=== PATIENT | male | born 1940 | race Caucasian/White ===

== ENCOUNTER → 2018-07-15 10:45 | Outpatient (CLI) | payer OTHER | END | disposition home or self-care (01) | LOC: D.US 07-11 10:00 | DX: I65.23 Occlusion and stenosis of bilateral carotid arteries (principal); Z86.73 Personal history of transient ischemic attack (TIA), and cerebral infarction without residual deficits ==

== ENCOUNTER 2018-09-23 05:43 | Outpatient (CLI) | payer MEDICARE ==
[~2018-09-23] VITALS: Ht 172.7 cm; Wt 77.3 kg
--- NOTE | ~2018-09-23 | HEMODYNAMI ---
PATIENT:AMY SCHRADER MEDICAL RECORD: [id number] : 42 [id number] ADMISSION DATE: 09/23/18 Generatedon:09/23/201810:31 Patient name: AMY SCHRADER Patient #: [id number] SSN: D OB: 1940 Date of study: 09/23/2018 Page: Of Hemodynamic Procedure Report Patient Data Patient Demographics Procedure consent was obtained First Name: AMY Gender: Male Last Name: RACIEL : 1940 Middle Initial: R Age: 78 year(s) Patient #: [id number] Race: Unknown Additional ID: [id number] Contact details [address]: [address] [place] [address] State: [place] City: [place] Zip code: [address] Past Medical History Allergies: No known allergies Admission Admission Data Admission Date: 09/23/2018 Admission Time: 5:43 Procedure Procedure Types Cath Procedure Peripheral Cath Diagnostic Procedure 4-Vessel 4 Vessel Carotid Arterio Arch Procedure Description Procedure Date Procedure Date: 09/23/2018 Procedure Start Time: 9:18 Procedure End Time: 10:30 Procedure Staff Name Function Donte Daniel MD Performing Physician Gay Tenorio RT Monitor Korin Aaron RN Nurse Rah Weller RT Scrub TAJ JACKSON RT Scrub Kay Tyson RN Nurse Procedure Data Cath Procedure Fluoroscopy Diagnostic fluoroscopy Total fluoroscopy Time: time: 17.4 min 17.4 min Diagnostic fluoroscopy Total fluoroscopy dose: dose: 1331 mGy 1331 mGy Contrast Material Contrast Material Type Amount (ml) Isovue 300 115 Diagnostic catheters Device Type Used For End Catheter Placement Merit ULTRA BOLUS FLUSH 5Fr 90CM catheter ([id number]) Cook HN5 5F/100CM Vertebral (neck catheter ([id number]) and/or head) arteriography Merit impress Morales 2 Vertebral (neck cath 100cm ([id number]) and/or head) arteriography Procedure Medications Medication Administration Route Dosage Lidocaine 1% added to field 20 Heparin Flush Bag added to field 3 (1000units/500ml NS) Versed I.V. 0.5 mg Fentanyl I.V. 25 mcg Fentanyl I.V. 25 mcg Versed I.V. 0.5 mg Fentanyl I.V. 25 mcg Hemodynamics Rest Heart Rate: 69 (bpm) Snapshots Pre Cath Intra NCS Post Cath Vital Signs Time Heart Resp SPO2 etCO2 NIBP (mmHg) Rhythm Pain Sedation Rate (ipm) (%) (mmHg) Status Level (bpm) 8:38:41 66 20 99 0 155/90(146) NSR 0 (11) 10(A) , No pain 8:42:57 54 14 99 0 170/82(137) NSR 0 (11) 9(A) , No pain 8:47:20 56 16 98 0 177/81(136) NSR 0 (11) 9(A) , No pain 8:52:19 60 11 98 0 Measuring NSR 0 (11) 9(A) , No pain 8:52:31 62 10 98 0 176/83(144) NSR 0 (11) 9(A) , No pain 8:56:57 59 17 98 0 157/80(150) NSR 0 (11) 9(A) , No pain 9:01:15 55 13 97 0 171/81(155) NSR 0 (11) 9(A) , No pain 9:06:14 54 12 98 0 Measuring NSR 0 (11) 9(A) , No pain 9:06:24 54 10 98 5.2 178/83(159) NSR 0 (11) 9(A) , No pain 9:10:49 53 15 99 15 176/85(151) NSR 0 (11) 9(A) , No pain 9:15:07 55 14 99 16.5 180/83(154) NSR 0 (11) 9(A) , No pain 9:19:33 53 13 97 15.8 172/80(151) NSR 0 (11) 9(A) , No pain 9:23:55 52 9 97 14.3 172/84(152) NSR 0 (11) 9(A) , No pain 9:28:17 55 13 97 20.3 169/82(148) NSR 0 (11) 9(A) , No pain 9:32:42 57 12 99 15 163/77(144) NSR 0 (11) 9(A) , No pain 9:36:58 56 57 98 3 170/89(149) NSR 0 (11) 9(A) , No pain 9:41:20 53 12 97 12 175/83(147) NSR 0 (11) 9(A) , No pain 9:45:46 53 13 98 24.8 166/76(138) NSR 0 (11) 9(A) , No pain 9:50:06 52 12 98 19.5 168/82(143) NSR 0 (11) 9(A) , No pain 9:54:26 52 10 98 13.5 171/83(147) NSR 0 (11) 9(A) , No pain 9:58:51 51 7 97 30.1 167/76(121) NSR 0 (11) 9(A) , No pain 10:03:15 52 10 98 9.7 157/77(133) NSR 0 (11) 9(A) , No pain 10:07:33 53 9 97 30.1 155/77(130) NSR 0 (11) 9(A) , No pain 10:11:51 55 12 97 17.3 169/78(140) NSR 0 (11) 9(A) , No pain 10:16:13 52 10 98 36.9 171/83(139) NSR 0 (11) 9(A) , No pain 10:20:35 53 13 97 23.3 160/81(141) NSR 0 (11) 9(A) , No pain 10:24:49 53 10 96 33.9 162/88(145) NSR 0 (11) 9(A) , No pain 10:28:49 30.8 No Cuff NSR 0 (11) 9(A) , No pain Medications Time Medication Route Dose Verified Delivered Reason Notes Effe ctiveness by by 8:40:30 Lidocaine 1% added 20ml Donte Kent for local to vial María Daniel MD anesthetic field JI 8:41:01 Heparin Flush added 3 Donte Kent used for Bag to Maraí Daniel MD procedure (1000units/500ml field JI NS) 9:16:52 Versed I.V. 0.5 Donte Villanueva for mg Jah Daniel RN sedation 9:17:08 Fentanyl I.V. 25 Donte Villanueva for mcg Jah Daniel RN sedation 9:54:07 Fentanyl I.V. 25 Donte Villanueva for mcg Jah Daniel RN sedation 9:54:22 Versed I.V. 0.5 Donte Villanueva for mg Jah Daniel RN sedation 10:16:23 Fentanyl I.V. 25 Donte Langley for mcg Galen Daniel RN sedation Procedure Log Time Note 8:18:03 TAJ JACKSON RT (R) sent for patient. Start room use. 8:31:35 Time tracking: Regular hours (M-F 7:00 - 5:00) 8:31:44 Plan of Care:Hemodynamics will remain stable., Cardiac rhythm will remain stable., Comfort level will be maintained., Respiratory function will remain adequate., Patient/ family verbilizes understanding of procedure., Procedure tolerated without complication., Recovers from procedure without complications.. 8:31:56 Patient received from Outpatients to IR Alert and oriented. Tansferred to table in Supine position. 8:31:58 Warm blankets applied, and tha hugger turned on for patient comfort. 8:32:00 Correct patient and procedure confirmed by team. 8:32:05 Signed procedure consent form obtained from patient. 8:32:11 ECG and BP/O2 sat monitors applied to patient. 8:32:27 H&P Date Dictated: 09/23/2018 H&P Addendum completed by physician on day of procedure. (MUST COMPLETE FOR ALL OUTPATIENTS). 8:32:30 Pre-procedure instructions explained to patient. 8:32:31 Pre-op teaching completed and patient verbalized understanding. 8:32:34 Family in waiting room. 8:32:45 Patient NPO since Midnight. 8:33:26 Patient allergic to No known allergies 8:33:34 Is the patient allergic to Iodine/contrast media? No. 8:33:41 Is patient on blood thinner?Yes 8:33:50 ACC The patient was administered the following blood thiners within the last 24 hours: ACCPlavix 8:34:18 Patient diabetic? No. 8:34:23 - 8:34:28 ----Pre-sedation anethsthesia assessment.---- 8:34:35 Previous problem with sedation/anesthesia? No ? 8:34:40 Snore? Yes 8:34:43 Sleep apnea? Yes 8:34:47 Deviated septum? Unknown 8:34:50 Opens mouth fully? Yes 8:34:55 Sticks out tongue? Yes 8:35:41 Airway obstruction? No ? 8:35:49 Dentures? No ? 8:36:21 IV patent on arrival in left wrist with 0.45%NaCl at [facility]. 8:36:48 Right Hip was prepped with chlora-prep and draped in sterile fashion. 8:36:50 Alarms reviewed. 8:36:51 Sharps counted by scrub and verified. 8:37:37 Vital chart was started 8:38:17 Baseline sample Acquired. 8:39:58 Pre procedure: right dorsailis pedis pulse Doppler 8:40:30 Lidocaine 1% 20ml vial added to field was administered by Donte Daniel MD; for local anesthetic; 8:41:01 Heparin Flush Bag (1000units/500ml NS) 3 added to field was administere d by Donte Daniel MD; used for procedure; 9:00:53 DOC .035 wire (U79081) opened to sterile field. 9:04:54 SHEATH 5FR Mission (WDF098) opened to sterile field. 9:05:19 GLIDE CATHETER 5FR ANGLED 100cm (CG508) opened to sterile field. 9:06:12 Use device set IR Diagnostic 9:06:15 ACIST Syringe (20871) opened to sterile field. 9:06:16 ACIST Hand Control (97543) opened to sterile field. 9:06:17 ACIST Manifold (71443) opened to sterile field. 9:06:18 Bag Decanter (2002) opened to sterile field. 9:06:20 Sterile Angiographic Pack opened to sterile field. 9:06:20 Tegaderm 4 x 4 (1626W) opened to sterile field. 9:10:45 Micropuncture VSI 4FR kit opened to sterile field. 9:14:27 Physician arrived 9:: --------ALL STOP TIME OUT------ 9:14:31 Final Timeout: patient, procedure, and site verified with staff and physician. All members of the team are in agreement. 9:14:34 Right groin site verified by team. 9:14:47 Sedation plan: IV Moderate Sedation Medication:Versed, Fentanyl, Lidocaine 9::57 Procedure started. :: Full Disclosure recording started 9:16:52 Versed 0.5 mg I.V. was administered by Kay Tyson RN; for sedation; 9:17:08 Fentanyl 25 mcg I.V. was administered by Kay Tyson RN; for sedation; 9:18:12 Local anesthetic to right femoral artery with Lidocaine 1% by Donte Daniel MD.INITIAL ACCESS ONLY 9:19:47 Access obtained with 4Fr micropunture. 9:20:40 5 ivorian sheath is placed into the right femeral artery. 9:21:23 A Hoard ULTRA BOLUS FLUSH 5Fr 90CM catheter ([id number]) was advanced over the wire and used for . 9:28:21 GLIDE WIRE .035 180CM STRAIGHT (SO5224) opened to sterile field. 9:28:36 TORQUE DEVICE PLASTIC .038 ( TD01) opened to sterile field. 9:29:49 The flush catheter is removed. An 0.35glidewire is used to advance a 5 ivorian angle glidecath. 9:30:09 RCA INJECTION. 9:42:45 A Cook HN5 5F/100CM catheter (I75651) was advanced over the wire and used for Vertebral (neck and/or head) access. 9:45:34 The HN5 is exchanged for the 5 ivorian angled glidecath. 9:52:43 Catheter exchanged over wire. 9:53:09 A Hoard impress Morales 2 cath 100cm ([id number]) was advanced over the wire and used for Vertebral (neck and/or head) arteriography. 9:54:07 Fentanyl 25 mcg I.V. was administered by Kay Tyson RN; for sedation; 9:54:22 Versed 0.5 mg I.V. was administered by Kay Tyson RN; for sedation; 9:57:51 LCA injected . 10:10:03 Left vertebral artery injection with the 5 ivorian angle glidecath. 10:12:42 EXOSEAL 5Fr (EX500) opened to sterile field. 10:14:57 The 5 ivorian exoseal is used in the right femeral artery. 10:15:12 Procedure ended.(Physican Out) 10:16:23 Fentanyl 25 mcg I.V. was administered by Korin Aaron RN; for sedation ; 10:16:35 Fluoroscopy time 17.40 minutes. 10:17:15 Fluoroscopy dose: 1331 mGy 10:17:15 Flurop Dose total: 1331 10:17:24 Contrast amount:Isovue 300 115ml. 10:17:28 Sharps counted by scrub and verified. 10:17:55 Insertion/operative site no bleeding no hematoma. 10:18:01 Post-op/insertion site Right Femoral artery dressed using a 4 x 4 and Tegaderm. 10:18:08 Post Procedure Pulses reassessed and unchanged 10:18:16 Post procedure instruction explained to patient.Patient verbalizes understanding. 10:18:17 Patient needs reinforcement of post procedure teaching. 10:19:45 Procedure and supply charges have been captured, reviewed, submitted an d are correct. 10:30:14 Vital chart was stopped 10:30:15 See physician's report for complete and final results. 10:30:18 Report given to Outpatients. 10:30:24 Patient transfered to Outpatients with Stretcher. 10:30:28 Procedure ended. 10:30:28 Full Disclosure recording stopped Device Usage Item Name Manufacture Quantity Catalog Number Hospital Part [facility] Lot# / Charge Number Stock Stock Serial# Code DOC .035 wire Cook Medical 1 [id number] 5 ([id number]) Merit ULTRA Merit 1 [id number] 337749 226507 5 BOLUS FLUSH Medical 5Fr 90CM catheter ([id number]) Micropuncture VSI VASCULAR 1 7266V 989540 634537 5 VSI 4FR kit SOLUTIONS SHEATH 5FR Terumo 1 [id number] 870749 891928 756839 5 Mission ([id number]) GLIDE CATHETER Terumo 1 CG508 687432 14640 860018 4 5FR ANGLED 100cm (CG508) ACIST Syringe Acist 1 05093 583016 235512 578931 20 (17477) Medical Systems Inc ACIST Hand Acist 1 90044 499444 675531 569945 5 Control Medical (50571) Systems Inc ACIST Manifold Acist 1 17791 193489 511259 590264 5 (89706) Medical Systems Inc Bag Decanter Microtek 1 2002S 192529 12957 809217 5 (2002S) Medical Inc. Sterile Cardinal 1 [id number] 853677 953485 5 Angiographic Health Pack Tegaderm 4 x 4 3M 1 1626W 397847 920929 706732 5 (1626W) GLIDE WIRE Terumo 1 XY9994 985641 071864 5 .035 180CM STRAIGHT (FJ1513) TORQUE DEVICE Gilman 1 TD01 980775 532515 252420 5 PLASTIC .038 ( Scientific TD01) Cook HN5 Cook Medical 1 B74825 416174 943500 2 5F/100CM catheter (J95807) Merit impress Merit 1 [id number] 563791 337017 0 Morales 2 cath Medical 100cm ([id number]) EXOSEAL 5Fr Cardinal 1 EX500 097161 493090 145337 10 (EX500) Health Signature Audit [place] Stage Time Signature Unsigned Intra-Procedure 09/23/2018 Gay 10:30:56 AM Coby OZUNA(Ciara) (CV) Signatures Monitor : Gay Signature : Coby RT Date : Time : [address] [address]
[2018-09-23 06:33] LABS: HEMATOCRIT 37.1 % (42.0-54.0); HEMOGLOBIN 13.3 g/dL (13.5-17.5); LYMPHOCYTES 25.7 % (15-50); MCH 31.1 pg (26.0-34.0); MCHC 35.8 g/dL (31.0-37.0); MCV 86.7 fL (80.0-100.0); MEAN PLATELET VOLUME 10.2 fL (7.4-10.4); PLATELET COUNT 120 10x3/uL (130-400); RBC 4.28 10x6/uL (4.20-6.10); RDW 13.2 % (11.5-14.5); WBC 4.5 10x3/uL (4.8-10.8)
[2018-09-23] MEDS ORDERED: BUPROPION HCL75 MG PO (06:43)
[2018-09-23] MEDS ORDERED: LIPITOR20 MG PO (06:43)
[2018-09-23] MEDS ORDERED: PLAVIX75 MG PO (06:44)
[2018-09-23] MEDS ORDERED: DONEPEZIL HCL5 MG PO (06:44)
[2018-09-23] MEDS ORDERED: HYDROCHLOROTHIA25 MG PO (06:45)
[2018-09-23] MEDS ORDERED: LISINOPRIL10 MG PO (06:45)
[2018-09-23] MEDS ORDERED: CARDURA4 MG PO (06:45)
[2018-09-23] MEDS ORDERED: FLOMAX0.4 MG PO (06:46)
[2018-09-23] MEDS ORDERED: PAROXETINE HCL10 MG PO (06:46)
[2018-09-23] MEDS ORDERED: ZOCOR10 MG PO (06:46)
[2018-09-23] MEDS ORDERED: OMEPRAZOLE20 M1 PO (06:46)
[2018-09-23 06:51] LABS: ANION GAP 8.4 mmol/L (8-16); CALCIUM 8.7 mg/dL (8.5-10.1); CARBON DIOXIDE 31.9 mmol/L (21.0-32.0); CREATININE - SERUM 1.4 mg/dL (0.6-1.3); POTASSIUM - SERUM 3.3 mmol/L (3.5-5.1)
[2018-09-23 06:53] VITALS: BP 164/75; Ht 172.7 cm; Wt 77.3 kg
[2018-09-23 07:02] LABS: INR 1.01 (0.85-1.17); PROTIME 12.8 SECONDS (11.6-15.0)
--- NOTE | 2018-09-23 10:47 | NUR ---
1035 RETURNED TO 2514 BY STRETCHER RT GROIN PUFFY YET SOFT, PRESSURE HELT 15 MINUTES, HAS EXOCELE CLOSURE. FAMILY AT SIDE. SEE POST PROCEDURE CHECKLIST FOR FOR VITAL SIGN TRENDS.
--- NOTE | 2018-09-23 10:55 | NUR ---
1050 PRESSURE RELEASED, SITE SOFT, ICE CAP PLACED, PT. REMINDED TO KEEP HEAD ON PILLOW FAMILY AT BEDSIDE. ADA FINGER FOOD DIET ORDERED.
--- NOTE | 2018-09-23 11:23 | NUR ---
1120 GROIN SITE IS SOFT, ICE CAP REMAINS AT SITE, GOOD PEDAL PULSES, FAMILY AT SIDE.
--- NOTE | 2018-09-23 12:59 | NUR ---
PT ABLE TO VOID 500ML OF CLEAR YELLOW URINE AT THIS TIME.
== END 2018-09-23 14:40 | disposition home or self-care (01) ==
LOC: D.SP 05:43
PROVIDERS: General Practice; ATTEND Thoracic Surgery (Cardiothoracic Vascular Surgery)
DX: I65.23 Occlusion and stenosis of bilateral carotid arteries (principal); Z01.812 Encounter for preprocedural laboratory examination

== ENCOUNTER → 2019-12-14 09:59 | Outpatient (CLI) | payer MEDICARE ==
[2018-09-23 06:53] VITALS: BMI 25.9
[~2019-12-14 09:59] MED LIST: BUPROPION HCL75 MG PO; CARDURA4 MG PO; DONEPEZIL HCL5 MG PO; FLOMAX0.4 MG PO; HYDROCHLOROTHIA25 MG PO; LIPITOR20 MG PO; LISINOPRIL10 MG PO; OMEPRAZOLE20 M1 PO; PAROXETINE HCL10 MG PO; PLAVIX75 MG PO; ZOCOR10 MG PO
== END | disposition home or self-care (01) ==
LOC: D.US 10-05 11:30
PROVIDERS: ATTEND Thoracic Surgery (Cardiothoracic Vascular Surgery)
DX: I65.23 Occlusion and stenosis of bilateral carotid arteries (principal)